=== PATIENT | female | born 1970 | race Caucasian/White ===

== ENCOUNTER 2018-02-16 14:20 | Emergency (ER) | payer OTHER ==
[~2018-02-16] VITALS: Ht 172.7 cm; Wt 102.1 kg
[~2018-02-16 14:20] MED LIST: BACTROBAN CREAM30 G1 TOP; BENADRYL25 MG PO; CELEXA20 MG PO; CLEOCIN HCL300 MG PO; FLONASE 0.05%50 MCG NASAL; HYDROCORTISONE30 G9 TRANSDERM; IBUPROFEN 800800 M1 PO; LISINOPRIL10 MG; NORCO 5-325 TA1 EACH PO; ONDANSETRON HCL4 M2 PO; ZYRTEC10 MG PO
[2018-02-16] MEDS ORDERED: KEFLEX500 M1 PO (14:53)
[2018-02-16 15:07] VITALS: BP 152/91
== END 2018-02-16 15:08 | disposition home or self-care (01) ==
LOC: M.ERS 14:20
DX: S61.210A Laceration without foreign body of right index finger without damage to nail, initial encounter (principal); I10 Essential (primary) hypertension; F32.9 Major depressive disorder, single episode, unspecified; F17.200 Nicotine dependence, unspecified, uncomplicated; Z88.0 Allergy status to penicillin; W26.8XXA Contact with other sharp object(s), not elsewhere classified, initial encounter; Y93.89 Activity, other specified; Y92.89 Other specified places as the place of occurrence of the external cause; Y99.0 Civilian activity done for income or pay

== ENCOUNTER 2019-01-31 08:22 | Emergency (ER) | payer OTHER ==
[~2019-01-31] VITALS: Ht 172.7 cm; Wt 102.1 kg
[~2019-01-31 08:22] MED LIST changes: +KEFLEX500 M1 PO
[2019-01-31 08:54] LABS: ABSOLUTE EOSINOPHILS 0.1 thou/uL (0.0-0.7); ABSOLUTE LYMPHOCYTES 2.3 thou/uL (0.8-5.3); ABSOLUTE MONOCYTES 0.5 thou/uL (0.0-1.2); ABSOLUTE NEUTROPHILS 3.8 thou/uL (1.6-8.1); BASOPHILS 0.7 %; EOSINOPHILS 1.9 %; HEMATOCRIT 46.5 % (37.0-47.0); HEMOGLOBIN 15.8 gm/dL (12.0-15.0); LYMPHOCYTES 33.8 %; MCH 32.6 pg (26.0-34.0); MCHC 33.9 g/dL (28.0-37.0); MCV 96.2 fL (80.0-100.0); MPV 9.3 fl. (7.2-11.1); NUCLEATED RBCS 0 /100WBC; PLATELET COUNT* 223 thou/uL (150-400); POLYS 55.6 %; RBC 4.83 mil/uL (4.20-5.00); RDW-CV 13.2 % (10.5-14.5); WBC 6.8 thou/uL (4.0-11.0)
[2019-01-31 09:23] LABS: ALBUMIN 3.2 g/dL (3.4-5.0); CALCIUM 8.2 mg/dL (8.5-10.1); CREATININE 0.8 mg/dL (0.6-1.3); POTASSIUM 3.6 mmol/L (3.5-5.1); TOTAL BILIRUBIN 0.4 mg/dL (<0.1-1.0)
[2019-01-31] MEDS ORDERED: ZOFRAN ODT4 MG DISSOLVE (09:27)
[2019-01-31 09:42] VITALS: BP 174/104
== END 2019-01-31 09:42 | disposition home or self-care (01) ==
LOC: M.ERS 08:22
PROVIDERS: Emergency Medicine Emergency Medical Services
DX: K52.9 Noninfective gastroenteritis and colitis, unspecified (principal); I10 Essential (primary) hypertension; F32.9 Major depressive disorder, single episode, unspecified; Z88.0 Allergy status to penicillin

== ENCOUNTER 2020-02-08 14:16 | Emergency (ER) | payer OTHER ==
[~2020-02-08] VITALS: Ht 172.7 cm; Wt 104.3 kg
[~2020-02-08 14:16] MED LIST changes: +ZOFRAN ODT4 MG DISSOLVE
[2020-02-08] MEDS ORDERED: FLEXERIL PO (16:38)
[2020-02-08] MEDS ORDERED: TYLENOL WITH CO1 TA1 PO (16:38)
[2020-02-08 17:01] VITALS: BP 181/90
== END 2020-02-08 17:01 | disposition home or self-care (01) ==
LOC: M.ERS 14:16
DX: S16.1XXA Strain of muscle, fascia and tendon at neck level, initial encounter (principal); M54.6 Pain in thoracic spine; M25.551 Pain in right hip; I10 Essential (primary) hypertension; F17.210 Nicotine dependence, cigarettes, uncomplicated; Z88.0 Allergy status to penicillin; Z98.51 Tubal ligation status; V29.49XA Motorcycle driver injured in collision with other motor vehicles in traffic accident, initial encounter; Y93.89 Activity, other specified; Y92.89 Other specified places as the place of occurrence of the external cause; Y99.8 Other external cause status

== ENCOUNTER 2020-09-03 11:55 | Emergency (ER) | payer OTHER ==
[~2020-09-03] VITALS: Ht 172.7 cm; Wt 108.9 kg
[~2020-09-03 11:55] MED LIST changes: +FLEXERIL PO; +TYLENOL WITH CO1 TA1 PO
[2020-09-03 12:33] LABS: URINE BILIRUBIN NEGATIVE (Negative); URINE BLOOD NEGATIVE (Negative); URINE CLARITY CLEAR; URINE COLOR YELLOW; URINE GLUCOSE-RANDOM NEGATIVE (Negative); URINE KETONES NEGATIVE (Negative); URINE LEUKOCYTES-REFLEX NEGATIVE (Negative); URINE NITRITE-REFLEX NEGATIVE (Negative); URINE PROTEIN NEGATIVE (Negative); URINE SPECIFIC GRAVITY 1.025 (1.005-1.030); URINE UROBILINOGEN 0.2 E.U./dl (0.2-1.0)
[2020-09-03 12:39] LABS: ABSOLUTE BASOPHILS 0.1 thou/uL (0.0-0.2); ABSOLUTE EOSINOPHILS 0.1 thou/uL (0.0-0.7); ABSOLUTE LYMPHOCYTES 3.1 thou/uL (0.8-5.3); ABSOLUTE MONOCYTES 0.7 thou/uL (0.0-1.2); ABSOLUTE NEUTROPHILS 5.2 thou/uL (1.6-8.1); BASOPHILS 0.7 %; EOSINOPHILS 1.6 %; HEMATOCRIT 45.8 % (37.0-47.0); HEMOGLOBIN 16.1 gm/dL (12.0-15.0); LYMPHOCYTES 34.2 %; MCH 33.7 pg (26.0-34.0); MCHC 35.2 g/dL (28.0-37.0); MCV 95.9 fL (80.0-100.0); MONOCYTES 7.1 %; MPV 8.6 fl. (7.2-11.1); NUCLEATED RBCS 0 /100WBC; PLATELET COUNT* 230 thou/uL (150-400); POLYS 56.4 %; RBC 4.78 mil/uL (4.20-5.00); WBC 9.2 thou/uL (4.0-11.0)
[2020-09-03] MEDS ORDERED: LISINOPRIL-HCT1 EACH PO (12:42)
[2020-09-03] MEDS ORDERED: FLEXERIL PO (12:42)
[2020-09-03] MEDS ORDERED: APAP W/CODEINE1 TA2 PO (12:42)
[2020-09-03 12:47] LABS: CREATININE 1.1 mg/dL (0.6-1.3); POTASSIUM 3.7 mmol/L (3.5-5.1)
[2020-09-03 12:51] LABS: ALBUMIN 3.8 g/dL (3.4-5.0); TOTAL BILIRUBIN 0.2 mg/dL (<0.1-1.0); TOTAL PROTEIN 7.8 g/dL (6.4-8.2)
[2020-09-03 13:04] VITALS: BP 185/83
== END 2020-09-03 13:04 | disposition home or self-care (01) ==
LOC: M.ERS 11:55
PROVIDERS: Physician Assistant
DX: I10 Essential (primary) hypertension (principal); M54.5 Low back pain; Z88.0 Allergy status to penicillin; Z98.51 Tubal ligation status

== ENCOUNTER 2020-11-05 12:40 | Emergency (ER) | payer OTHER ==
[~2020-11-05] VITALS: Ht 172.7 cm; Wt 108.9 kg
[~2020-11-05 12:40] MED LIST changes: +APAP W/CODEINE1 TA2 PO; +LISINOPRIL-HCT1 EACH PO
[2020-11-05 14:15] VITALS: BP 155/87
== END 2020-11-05 14:15 | disposition home or self-care (01) ==
LOC: M.ERS 12:40
DX: G43.909 Migraine, unspecified, not intractable, without status migrainosus (principal); Z20.828 Contact with and (suspected) exposure to other viral communicable diseases; I10 Essential (primary) hypertension; Z98.51 Tubal ligation status; Z88.0 Allergy status to penicillin

== ENCOUNTER 2021-01-27 10:57 | Emergency (ER) | payer OTHER ==
[~2021-01-27] VITALS: Ht 172.7 cm; Wt 108.4 kg
[2021-01-27] MEDS ORDERED: CHANTIX1 MG PO (11:11)
[2021-01-27] MEDS ORDERED: LIPITOR10 MG PO (11:12)
[2021-01-27 11:25] LABS: URINE BILIRUBIN NEGATIVE (Negative); URINE BLOOD TRACE (Negative); URINE CLARITY CLEAR; URINE COLOR YELLOW; URINE GLUCOSE-RANDOM NEGATIVE (Negative); URINE KETONES NEGATIVE (Negative); URINE LEUKOCYTES-REFLEX NEGATIVE (Negative); URINE NITRITE-REFLEX NEGATIVE (Negative); URINE PROTEIN NEGATIVE (Negative); URINE UROBILINOGEN 0.2 E.U./dl (0.2-1.0)
[2021-01-27] MEDS ORDERED: APAP W/CODEINE1 TA2 PO (11:27)
[2021-01-27] MEDS ORDERED: FLEXERIL PO (11:27)
[2021-01-27] MEDS ORDERED: MEDROLDOSEPACK PO (11:27)
[2021-01-27 11:43] VITALS: BP 142/84
== END 2021-01-27 11:45 | disposition home or self-care (01) ==
LOC: M.ERS 10:57
PROVIDERS: Physician Assistant
DX: M54.5 Low back pain (principal); I10 Essential (primary) hypertension; G43.909 Migraine, unspecified, not intractable, without status migrainosus; Z88.0 Allergy status to penicillin; Z98.51 Tubal ligation status